=== PATIENT | male | born 1990 | race Caucasian/White ===

== ENCOUNTER 2016-10-06 15:32 | Emergency (ER) | payer MEDICAID ==
[~2016-10-06] VITALS: Ht 175.3 cm; Wt 75.0 kg
[2016-10-06 15:34] VITALS: BP 145/92; PULSE 102; RESP 20; TEMP 97.7; O2SAT 96
[2016-10-06 20:16] VITALS: BP 168/102; PULSE 84; RESP 18; O2SAT 98
--- NOTE | 2016-10-06 20:16 | PD ---
HPI Chief Complaint: Chest Pain Time Seen by Provider: 20:16 Travel History International Travel<30 days: No Contact w/Intl Traveler<30days: No Traveled to known affect area: No History of Present Illness HPI 26-year-old male presents to the emergency department for evaluation of chest pain. Patient states this is been intermittent for the last year. Is mostly right sided. He states over the course of the last few days and especially today he has been experiencing an increase pain in his right side that radiates to his back.It is difficult to get comfortable at times It is sharp and stabbing at times. Patient also noticed that his urine was darker today. He has also had an episode of vomiting and dry heaving. Has no history DVT or PE. Has remote history of alcoholism and drug dependency. Fever or chills. No recent illnesses. Has no other symptoms to report. PFSH Past Medical History Medical History: Denies Significant Hx Diminished Hearing: No Tetanus Vaccination: < 5 Years Past Surgical History Surgical History: No Previous Surgery Social History Alcohol Use: No (quit 8 months ago) Tobacco Use: Yes (1 ppd) Substance Use: No Allergies-Medications (Allergen,Severity, Reaction): Coded Allergies: Penicillin (Verified Allergy, Mild, POSSIBLE ALLERGY, 10/06/16) Reported Meds & Prescriptions Reported Meds & Active Scripts Active No Active Prescriptions or Reported Medications Review of Systems Except as stated in HPI: all other systems reviewed are Neg Physical Exam Narrative GENERAL: Well-nourished male patient, in no acute distress SKIN: Focused skin assessment warm/dry. HEAD: Atraumatic. Normocephalic. EYES: Pupils equal and round. No scleral icterus. No injection or drainage. ENT: No nasal bleeding or discharge. Mucous membranes pink and moist. NECK: Trachea midline. No JVD. CARDIOVASCULAR: Tachycardic rate and rhythm. No murmur appreciated. RESPIRATORY: No accessory muscle use. Diminished but clear to auscultation. Breath sounds equal bilaterally. GASTROINTESTINAL: Abdomen soft, non-tender, nondistended. Hepatic and splenic margins not palpable. MUSCULOSKELETAL: No obvious deformities. No clubbing. No cyanosis. No edema. No CVA tenderness. NEUROLOGICAL: Awake and alert. No obvious cranial nerve deficits. Motor grossly within normal limits. Normal speech. PSYCHIATRIC: Appropriate mood and affect; insight and judgment normal. Data Data Last Documented VS Vital Signs Date Time Temp Pulse Resp B/P Pulse Ox O2 Delivery O2 Flow Rate FiO2 10/06/16 21:22 70 18 127/84 97 Room Air 10/06/16 15:34 97.7 Orders Electrocardiogram (10/06/16 ) Iv Access Insert/Monitor (10/06/16 20:16) Complete Blood Count With Diff (10/06/16 20:16) Basic Metabolic Panel (Bmp) (10/06/16 20:16) Urinalysis - C+S If Indicated (10/06/16 20:16) Sodium Chlor 0.9% 1000 Ml Inj (Ns 1000 M (10/06/16 20:30) Ct Abd/Pel W/O Iv Contrast (10/06/16 ) Ketorolac Inj (Toradol Inj) (10/06/16 22:30) Labs Laboratory Tests Test 10/06/16 10/06/16 20:25 21:50 White Blood Count 5.2 TH/MM3 Red Blood Count 4.95 MIL/MM3 Hemoglobin 16.1 GM/DL Hematocrit 45.0 % Mean Corpuscular Volume 90.9 FL Mean Corpuscular Hemoglobin 32.5 PG Mean Corpuscular Hemoglobin 35.7 % Concent Red Cell Distribution Width 12.5 % Platelet Count 296 TH/MM3 Mean Platelet Volume 7.1 FL Neutrophils (%) (Auto) 64.5 % Lymphocytes (%) (Auto) 22.5 % Monocytes (%) (Auto) 10.8 % Eosinophils (%) (Auto) 1.5 % Basophils (%) (Auto) 0.7 % Neutrophils # (Auto) 3.3 TH/MM3 Lymphocytes # (Auto) 1.2 TH/MM3 Monocytes # (Auto) 0.6 TH/MM3 Eosinophils # (Auto) 0.1 TH/MM3 Basophils # (Auto) 0.0 TH/MM3 CBC Comment DIFF FINAL Differential Comment Sodium Level 139 MEQ/L Potassium Level 3.4 MEQ/L Chloride Level 100 MEQ/L Carbon Dioxide Level 25.0 MEQ/L Anion Gap 14 MEQ/L Blood Urea Nitrogen 8 MG/DL Creatinine 0.92 MG/DL Estimat Glomerular Filtration 99 ML/MIN Rate Random Glucose 85 MG/DL Calcium Level 9.4 MG/DL Urine Color YELLOW Urine Turbidity CLEAR Urine pH 6.5 Urine Specific [place] 1.012 Urine Protein NEG mg/dL Urine Glucose (UA) NEG mg/dL Urine Ketones TRACE mg/dL Urine Occult Blood NEG Urine Nitrite NEG Urine Bilirubin NEG Urine Urobilinogen LESS THAN 2.0 MG/DL Urine Leukocyte Esterase TRACE Urine RBC LESS THAN 1 /hpf Urine WBC 2 /hpf Microscopic Urinalysis Comment CULT NOT INDICATED MDM Medical Decision Making Medical Screen Exam Complete: Yes Emergency Medical Condition: Yes Medical Record Reviewed: Yes Differential Diagnosis Chest wall pain versus muscle strain versus pleuritic pain versus PE versus renal calculi versus biliary colic Narrative Course 26-year-old male presents to emergency department for evaluation. Patient has been having chest pain for the last year but worsening today and now radiates to his posterior trunk. He is tachycardic upon arrival. After IVF NS bolus, HR normalizes. CBC and BMP are without acute concern. Urinalysis is pending. Patient is given IV fluids. CT imaging is ordered and negative for acute obstructive uropathy. Mild fatty liver. discussed with pt. He is discharged at this time. Diagnosis Primary Impression: Chest wall pain Additional Impression: Right flank pain Referrals: Primary Care Physician Patient Instructions: Chest Wall Pain (ED), General Instructions Additional Instructions: Follow up with primary care provider Maintain adequate oral hydration Tylenol or ibuprofen as directed on the package as needed for pain Return immediately with any acute worsening of symptoms Med/Other Pt SpecificInfo: No Change to Meds Scripts No Active Prescriptions or Reported Meds Disposition: 01 DISCHARGE HOME Condition: Stable Lisa Smith Oct 06, 2016 20:16
[2016-10-06] MEDS ORDERED: SODIUM CHLOR 0.9% 1000 ML INJ 1,000 ML IV ONE (20:30)
[2016-10-06 20:44] LABS: AUTOMATED NEUTROPHIL # 3.3 TH/MM3 (1.8-7.7); BASOPHIL % 0.7 % (0.0-2.0); EOSINOPHIL # 0.1 TH/MM3 (0-0.4); EOSINOPHIL % 1.5 % (0.0-4.0); HEMO FLAGS DIFF FINAL; LYMPH % 22.5 % (9.0-44.0); LYMPHOCYTE # 1.2 TH/MM3 (1.0-4.8); MEAN CELL VOLUME 90.9 FL (80.0-100.0); MEAN CORPUSCULAR HEMOGLOBIN 32.5 PG (27.0-34.0); MEAN CORPUSCULAR HGB CONC 35.7 % (32.0-36.0); MONO % 10.8 % (0.0-8.0); NEUT % 64.5 % (16.0-70.0); PLATELET COUNT 296 TH/MM3 (150-450); RED BLOOD COUNT 4.95 MIL/MM3 (4.50-5.90); RED CELL DISTRIBUTION WIDTH 12.5 % (11.6-17.2); WHITE BLOOD COUNT 5.2 TH/MM3 (4.0-11.0)
[2016-10-06 21:10] LABS: POTASSIUM 3.4 MEQ/L (3.5-5.1)
[2016-10-06 21:22] VITALS: BP 127/84; PULSE 70; RESP 18; O2SAT 97
[2016-10-06 22:10] LABS: BLOOD, URINE NEG (NEG); COMMENT (UR) CULT NOT INDICATED; CULTURE IF INDICATED CULT NOT INDICATED; GLUCOSE,URINE NEG (NEG); KETONE, URINE TRACE mg/dL (NEG); NITRITE,URINE NEG (NEG); PH, URINE 6.5 (5.0-8.5); URINE COLOR YELLOW (YELLW/STRAW)
--- NOTE | 2016-10-06 22:20 | RADRPT ---
EXAM DATE/TIME: 10/06/2016 21:59 [facility] COMPARISON: No previous studies available for comparison. INDICATIONS : Right flank abdominal pain for 10 days; evaluate for renal stone. ORAL CONTRAST: No oral contrast ingested. RADIATION DOSE: 4.04 CTDIvol (mGy) MEDICAL HISTORY : None SURGICAL HISTORY : None. ENCOUNTER: Initial ACUITY: 2 weeks PAIN SCALE: 6/10 LOCATION: Right flank Abdomen/pelvis TECHNIQUE: Volumetric scanning of the abdomen and pelvis was performed. Using automated exposure control and ad justment of the mA and/or kV according to patient size, radiation dose was kept as low as reasonably achievable to obtain optimal diagnostic quality images. FINDINGS: LOWER LUNGS: The visualized lower lungs are clear. LIVER: The liver is mildly enlarged and demonstrates fatty infiltration. No focal hepatic mass is noted. The re is no dilation of the biliary tree. No calcified gallstones. SPLEEN: Normal size without lesion. PANCREAS: Within normal limits. KIDNEYS: Normal in size and shape. There is no mass, stone, or hydronephrosis. ADRENAL GLANDS: Within normal limits. VASCULAR: There is no aortic aneurysm. BOWEL/MESENTERY: The stomach, small bowel, and colon demonstrate no acute abnormality. There is no free intraperitone al air or fluid. ABDOMINAL WALL: Within normal limits. RETROPERITONEUM: There is no lymphadenopathy. BLADDER: No wall thickening or mass. REPRODUCTIVE: Within normal limits. INGUINAL: There is no lymphadenopathy or hernia. MUSCULOSKELETAL: Within normal limits for patient age. CONCLUSION: 1. No acute obstructive uropathy. 2. Mild enlarged fatty liver. Barry Byrd MD on October 06, 2016 at 22:16 Board Certified Radiologist. This report was verified electronically.
[2016-10-06] MEDS ORDERED: KETOROLAC TROMETHAMINE 30 MG/ML (IVP) VIAL IV PUSH ONE (22:30)
[2016-10-06 22:52] VITALS: BP 126/78
--- NOTE | 2016-10-08 21:31 | EKG ---
Date Performed: 10/06/2016 Time Performed: 16:38:45 PTAGE: 26 years EKG: Sinus rhythm NONSPECIFIC T-WAVE ABNORMALITY BORDERLINE ECG NO PREVIOUS TRACING DOCTOR: Hafsa Schilling Interpretating Date/Time 10/08/2016 21:27:49
== END 2016-10-06 22:57 | disposition home or self-care (01) ==
LOC: NEPE 15:32
DX: R07.89 Other chest pain (principal); R10.9 Unspecified abdominal pain
CPT/HCPCS: 74176; 80048; 81001; 85025; 93005; 96361; 96374; 99285; J1885; J7030

== ENCOUNTER 2016-11-26 10:51 | Emergency (ER) | payer OTHER, MEDICAID ==
[~2016-11-26] VITALS: Ht 175.3 cm; Wt 65.8 kg
[2016-11-26 10:54] VITALS: BP 121/89; PULSE 84; RESP 16; TEMP 97.9; O2SAT 100
--- NOTE | 2016-11-26 11:14 | PD ---
HPI Chief Complaint: Syncope/Near-Syncope Time Seen by Provider: 11:02 Travel History International Travel<30 days: No Contact w/Intl Traveler<30days: No Traveled to known affect area: No History of Present Illness HPI 26-year-old former alcoholic here with complaint of syncopal episode. Patient states that he was out riding in a boat, driving when he felt suddenly lightheaded, nauseous, dizzy and had a presyncopal episode. No associated chest pain, shortness of breath, palpitations. No recent travel, history of DVT , PE or risk factors. He denies any personal or family history of prolonged QT syndrome, WPW, Brugada. Patient states that he is concerned his blood sugar may be low, noting a female with history of diabetes that he's never been diagnosed with this. Patient feels fine now. He admits that he hadn't had much oral intake today yet, but denies any alcohol use. He states he's been sober for the last 1.5 years. Notes a history of previous syncopal episodes, with similar events. COUNT INCLUDES THE [facility] Past Medical History Diminished Hearing: No Medical other: Yes ("problems with BP") Tetanus Vaccination: < 5 Years Influenza Vaccination: Yes ?: Not Social History Alcohol Use: No (former alcoholic) Tobacco Use: Yes (1 ppd) Substance Use: No Allergies-Medications (Allergen,Severity, Reaction): Coded Allergies: No Known Allergies (Unverified , 11/26/16) Reported Meds & Prescriptions Reported Meds & Active Scripts Active No Active Prescriptions or Reported Medications Review of Systems Except as stated in HPI: all other systems reviewed are Neg Physical Exam Narrative GENERAL: Well-appearing thin male heavily tattooed in no acute distress SKIN: Focused skin assessment warm/dry. HEAD: Normocephalic. EYES: Pupils equal and round. No scleral icterus. No injection or drainage. ENT: No nasal bleeding or discharge. Mucous membranes pink and moist. NECK: Supple CARDIOVASCULAR: Regular rate and rhythm. No murmur appreciated. RESPIRATORY: No accessory muscle use. Clear to auscultation. Breath sounds equal bilaterally. GASTROINTESTINAL: Abdomen soft, non-tender, nondistended. MUSCULOSKELETAL: No obvious deformities. No edema. NEUROLOGICAL: Awake and alert. No obvious cranial nerve deficits. Motor grossly within normal limits. Normal speech. PSYCHIATRIC: Appropriate mood and affect; insight and judgment normal. Data Data Last Documented VS Vital Signs Date Time Temp Pulse Resp B/P Pulse Ox O2 Delivery O2 Flow Rate FiO2 11/26/16 11:20 97 11/26/16 10:54 97.9 84 16 121/89 Orders Electrocardiogram (11/26/16 11:06) Basic Metabolic Panel (Bmp) (11/26/16 11:06) Complete Blood Count With Diff (11/26/16 11:06) Magnesium (Mg) (11/26/16 11:06) Ecg Monitoring (11/26/16 11:06) Iv Access Insert/Monitor (11/26/16 11:06) Oximetry (11/26/16 11:06) Sodium Chloride 0.9% Flush (Ns Flush) (11/26/16 11:15) Alcohol (Ethanol) (11/26/16 11:06) Labs Laboratory Tests Test 11/26/16 11:16 White Blood Count 3.7 TH/MM3 Red Blood Count 4.91 MIL/MM3 Hemoglobin 15.4 GM/DL Hematocrit 45.1 % Mean Corpuscular Volume 91.9 FL Mean Corpuscular Hemoglobin 31.5 PG Mean Corpuscular Hemoglobin 34.2 % Concent Red Cell Distribution Width 11.7 % Platelet Count 317 TH/MM3 Mean Platelet Volume 6.8 FL Neutrophils (%) (Auto) 55.7 % Lymphocytes (%) (Auto) 26.4 % Monocytes (%) (Auto) 11.5 % Eosinophils (%) (Auto) 5.4 % Basophils (%) (Auto) 1.0 % Neutrophils # (Auto) 2.1 TH/MM3 Lymphocytes # (Auto) 1.0 TH/MM3 Monocytes # (Auto) 0.4 TH/MM3 Eosinophils # (Auto) 0.2 TH/MM3 Basophils # (Auto) 0.0 TH/MM3 CBC Comment DIFF FINAL Differential Comment Sodium Level 142 MEQ/L Potassium Level 3.8 MEQ/L Chloride Level 107 MEQ/L Carbon Dioxide Level 29.6 MEQ/L Anion Gap 5 MEQ/L Blood Urea Nitrogen 8 MG/DL Creatinine 0.71 MG/DL Estimat Glomerular Filtration 133 ML/MIN Rate Random Glucose 91 MG/DL Calcium Level 8.1 MG/DL Magnesium Level 2.3 MG/DL Ethyl Alcohol Level 382 MG/DL MDM Medical Decision Making Medical Screen Exam Complete: Yes Emergency Medical Condition: Yes Medical Record Reviewed: Yes Differential Diagnosis 26-year-old former alcoholic male here with presyncopal episode. Differential includes vasovagal, dehydration, electrolyte abnormality, arrhythmia Narrative Course Patient placed on monitor, IV established and blood obtained. Twelve-lead EKG showed sinus rhythm without notable ST or T-wave abnormalities, normal intervals. CBC, BMP, magnesium, blood alcohol level notable for blood alcohol level [id number]. Diagnosis Primary Impression: Alcohol intoxication in active alcoholic Qualified Code: F10.120 - Alcohol intoxication in active alcoholic, uncomplicated Additional Impression: Syncope Qualified Code: R55 - Syncope, unspecified syncope type Referrals: [facility] call for appointment Additional Instructions: Seek treatment for your alcoholism. Med/Other Pt SpecificInfo: No Change to Meds Scripts No Active Prescriptions or Reported Meds Disposition: 01 DISCHARGE HOME Condition: Stable Bessy Flowers MD November 26, 2016 11:14
[2016-11-26] MEDS ORDERED: SODIUM CHLORIDE 0.9% FLUSH 10 ML FLUSH IVF PRN (11:15)
[2016-11-26 11:20] VITALS: O2SAT 97
[2016-11-26 11:23] LABS: AUTOMATED NEUTROPHIL # 2.1 TH/MM3 (1.8-7.7); EOSINOPHIL # 0.2 TH/MM3 (0-0.4); EOSINOPHIL % 5.4 % (0.0-4.0); HEMATOCRIT 45.1 % (39.0-51.0); HEMO FLAGS DIFF FINAL; LYMPH % 26.4 % (9.0-44.0); MEAN CELL VOLUME 91.9 FL (80.0-100.0); MEAN CORPUSCULAR HEMOGLOBIN 31.5 PG (27.0-34.0); MEAN CORPUSCULAR HGB CONC 34.2 % (32.0-36.0); MONO % 11.5 % (0.0-8.0); NEUT % 55.7 % (16.0-70.0); PLATELET COUNT 317 TH/MM3 (150-450); RED BLOOD COUNT 4.91 MIL/MM3 (4.50-5.90); RED CELL DISTRIBUTION WIDTH 11.7 % (11.6-17.2); WHITE BLOOD COUNT 3.7 TH/MM3 (4.0-11.0)
[2016-11-26 11:31] LABS: POTASSIUM 3.8 MEQ/L (3.5-5.1)
[2016-11-26 11:34] LABS: BICARBONATE 29.6 MEQ/L (21.0-32.0); MAGNESIUM 2.3 MG/DL (1.5-2.5)
--- NOTE | 2016-11-27 13:19 | EKG ---
Date Performed: 11/26/2016 Time Performed: 11:10:06 PTAGE: 26 years EKG: Sinus rhythm Normal ECG Compared to prior tracing no significant change PREVIOUS TRACING : 10/06/2016 16.38 DOCTOR: Raz Hardwick Interpretating Date/Time 11/27/2016 13:16:38
== END 2016-11-26 12:15 | disposition home or self-care (01) ==
LOC: PHED 10:51
DX: F10.120 Alcohol abuse with intoxication, uncomplicated (principal); R55 Syncope and collapse; F17.210 Nicotine dependence, cigarettes, uncomplicated; Y90.8 Blood alcohol level of 240 mg/100 ml or more
CPT/HCPCS: 80048; 80307; 83735; 85025; 93005

== ENCOUNTER 2017-07-14 20:22 | Emergency (ER) | payer SELFPAY ==
[~2017-07-14] VITALS: Ht 172.7 cm; Wt 65.0 kg
[2017-07-14 20:25] VITALS: BP 185/99; PULSE 71; RESP 16; TEMP 98.6; O2SAT 98
[2017-07-14] MEDS ORDERED: SODIUM CHLOR 0.9% 1000 ML INJ 1,000 ML IV ONE (20:47)
--- NOTE | 2017-07-14 20:48 | PD ---
HPI Chief Complaint: Seizure Time Seen by Provider: 20:43 Travel History International Travel<30 days: No Contact w/Intl Traveler<30days: No Traveled to known affect area: No History of Present Illness HPI 26-year-old male with history of alcohol dependence presents to emergency department for evaluation following a seizure. Patient stopped drinking 3 days ago. He woke up this morning and was quite tremulous. His father gave him one beer. He did drink this. Patient was walking into the kitchen this afternoon to get food prepared for his baby when he fell to the ground. His mother witnessed him "flopping like a fish." Patient did bite his tongue. He had no incontinence. Patient has no history of seizures. He has not been recently ill. Denies any headache, focal deficit, or weakness. He has no other symptoms to report. [facility] Past Medical History Medical History: Denies Significant Hx Diminished Hearing: No Social History Alcohol Use: No (former alcoholic) Tobacco Use: Yes (1 ppd) Substance Use: No Allergies-Medications (Allergen,Severity, Reaction): Coded Allergies: Penicillins (Verified Allergy, Severe, 07/14/17) Reported Meds & Prescriptions Reported Meds & Active Scripts Active Chlordiazepoxide HCl 25 Mg Capsule 1 Cap PO DIRECTED Take two capsules by mouth TID on day one THEN take two capsule by mouth BID on day two THEN take one capsule by mouth BID on days three and four Review of Systems Except as stated in HPI: all other systems reviewed are Neg Physical Exam Narrative GENERAL: Well-nourished, well-developed ill patient, ambulatory no acute distress. She is moderately tremulous in his extremities. SKIN: Focused skin assessment warm/dry. HEAD: Normocephalic. Atraumatic EYES: No scleral icterus. No injection or drainage. EOMI. PERRL ENT: Mucosa pink and moist. No erythema or exudates. No uvular edema. No uvular , palatal, or tonsillar deviation. Airway patent. Nasal turbinates appear normal without nasal blood, purulent drainage or septal hematoma. The tongue does have bite bajwa on the right lateral aspect of it. NECK: Supple, trachea midline. No JVD or lymphadenopathy. CARDIOVASCULAR: Elevated rate and rhythm without murmurs, gallops, or rubs. RESPIRATORY: Breath sounds equal bilaterally. No accessory muscle use. GASTROINTESTINAL: Abdomen soft, non-tender, nondistended. MUSCULOSKELETAL: No cyanosis, or edema. 5+ strength equal bilateral extremities. BACK: Nontender without obvious deformity. No CVA tenderness. Data Data Last Documented VS Vital Signs Date Time Temp Pulse Resp B/P (MAP) Pulse Ox O2 Delivery O2 Flow Rate FiO2 07/14/17 23:45 07/14/17 20:25 98.6 71 16 98 Room Air Orders Orders Complete Blood Count With Diff (07/14/17 20:47) Alcohol (Ethanol) (07/14/17 20:47) Ct Brain W/O Iv Contrast(Rout) (07/14/17 ) Blood Glucose (07/14/17 20:47) Ecg Monitoring (07/14/17 20:47) Iv Access Insert/Monitor (07/14/17 20:47) Oximetry (07/14/17 20:47) Comprehensive Metabolic Panel (07/14/17 20:47) Sodium Chlor 0.9% 1000 Ml Inj (Ns 1000 M (07/14/17 20:47) Sodium Chloride 0.9% Flush (Ns Flush) (07/14/17 21:00) Lorazepam Inj (Ativan Inj) (07/14/17 21:00) Magnesium (Mg) (07/14/17 20:47) Lorazepam Inj (Ativan Inj) (07/14/17 21:15) Ondansetron Inj (Zofran Inj) (07/14/17 21:15) Ed Discharge Order (07/14/17 23:34) Chlordiazepoxide (Librium) (07/14/17 23:45) Labs Laboratory Tests Test 07/14/17 21:00 White Blood Count 6.0 TH/MM3 Red Blood Count 3.99 MIL/MM3 Hemoglobin 13.2 GM/DL Hematocrit 37.1 % Mean Corpuscular Volume 92.9 FL Mean Corpuscular Hemoglobin 33.1 PG Mean Corpuscular Hemoglobin Concent 35.7 % Red Cell Distribution Width 12.3 % Platelet Count 107 TH/MM3 Mean Platelet Volume 7.3 FL Neutrophils (%) (Auto) 77.1 % Lymphocytes (%) (Auto) 14.4 % Monocytes (%) (Auto) 7.7 % Eosinophils (%) (Auto) 0.3 % Basophils (%) (Auto) 0.5 % Neutrophils # (Auto) 4.6 TH/MM3 Lymphocytes # (Auto) 0.9 TH/MM3 Monocytes # (Auto) 0.5 TH/MM3 Eosinophils # (Auto) 0.0 TH/MM3 Basophils # (Auto) 0.0 TH/MM3 CBC Comment DIFF FINAL Differential Comment Blood Urea Nitrogen 7 MG/DL Creatinine 0.60 MG/DL Random Glucose 85 MG/DL Total Protein 7.4 GM/DL Albumin 3.9 GM/DL Calcium Level 8.8 MG/DL Magnesium Level 1.3 MG/DL Alkaline Phosphatase 73 U/L Aspartate Amino Transf (AST/SGOT) 274 U/L Alanine Aminotransferase (ALT/SGPT) 186 U/L Total Bilirubin 1.8 MG/DL Sodium Level 136 MEQ/L Potassium Level 3.4 MEQ/L Chloride Level 96 MEQ/L Carbon Dioxide Level 29.2 MEQ/L Anion Gap 11 MEQ/L Estimat Glomerular Filtration Rate 162 ML/MIN Ethyl Alcohol Level LESS THAN 3 MG/DL MDM Medical Decision Making Medical Screen Exam Complete: Yes Emergency Medical Condition: Yes Medical Record Reviewed: Yes Differential Diagnosis Alcohol withdrawal versus seizure disorder versus electro-lyte abnormality versus intracranial abnormality Narrative Course 26-year-old male presents to emergency department for evaluation following a seizure. Patient does have history of alcohol dependence and recently stop drinking. His seizure was likely secondary to alcohol withdrawal. CT imaging of the brain confirms no acute intracranial abnormality. Lab work is without acute concern. Liver enzymes are slightly elevated which would be expected in long-term alcohol abuse. Patient was given Ativan to assist with withdrawal symptoms. Following an essentially negative workup, I discussed the patient my attending physician who is also assessed the patient. Patient does have strong family support system. He resides with his parents. We will discharge him home with Librium. I counseled him on use and encouraged follow-up the primary care provider. He agrees to return immediately with any acute worsening of symptoms. Diagnosis Primary Impression: Alcohol withdrawal seizure Qualified Codes: F10.230 - Alcohol dependence with withdrawal, uncomplicated Referrals: [facility] (Out patient) Primary Care Physician Patient Instructions: Alcohol Withdrawal (ED), General Instructions Additional Instructions: Follow-up with a primary care provider Seek outpatient assistance with your alcohol withdrawal Return immediately to the emergency department with any acute worsening symptoms Med/Other Pt SpecificInfo: Prescription(s) given Scripts Chlordiazepoxide HCl (Chlordiazepoxide HCl) 25 Mg Capsule 1 CAP PO DIRECTED, #14 Take two capsules by mouth TID on day one THEN take two capsule by mouth BID on day two THEN take one capsule by mouth BID on days three and four Prov: Lisa Smith 07/14/17 Disposition: 01 DISCHARGE HOME Condition: Stable Lisa Smith Jul 14, 2017 20:48
[2017-07-14] MEDS ORDERED: SODIUM CHLORIDE 0.9% FLUSH 10 ML FLUSH IVF PRN (21:00)
[2017-07-14] MEDS ORDERED: LORazepam 2 MG/ML VIAL IVS ONE (21:00)
[2017-07-14 21:11] LABS: AUTOMATED NEUTROPHIL # 4.6 TH/MM3 (1.8-7.7); BASOPHIL % 0.5 % (0.0-2.0); EOSINOPHIL % 0.3 % (0.0-4.0); HEMATOCRIT 37.1 % (39.0-51.0); HEMOGLOBIN 13.2 GM/DL (13.0-17.0); LYMPH % 14.4 % (9.0-44.0); LYMPHOCYTE # 0.9 TH/MM3 (1.0-4.8); MEAN CELL VOLUME 92.9 FL (80.0-100.0); MEAN CORPUSCULAR HEMOGLOBIN 33.1 PG (27.0-34.0); MEAN CORPUSCULAR HGB CONC 35.7 % (32.0-36.0); MEAN PLATELET VOLUME 7.3 FL (7.0-11.0); MONO % 7.7 % (0.0-8.0); MONOCYTE # 0.5 TH/MM3 (0-0.9); NEUT % 77.1 % (16.0-70.0); PLATELET COUNT 107 TH/MM3 (150-450); RED BLOOD COUNT 3.99 MIL/MM3 (4.50-5.90); RED CELL DISTRIBUTION WIDTH 12.3 % (11.6-17.2)
[2017-07-14] MEDS ORDERED: LORazepam 2 MG/ML VIAL IV PUSH ONE (21:15)
[2017-07-14] MEDS ORDERED: ONDANSETRON HCL 4 MG/2 ML VIAL IV PUSH ONE (21:15)
[2017-07-14 21:33] LABS: ALBUMIN 3.9 GM/DL (3.4-5.0); AST (GOT) 274 U/L (15-37); BICARBONATE 29.2 MEQ/L (21.0-32.0); BLOOD UREA NITROGEN 7 MG/DL (7-18); CALCIUM 8.8 MG/DL (8.5-10.1); CHLORIDE 96 MEQ/L (98-107); GLOMERULAR FILTRATION RATE 162 ML/MIN (>89); GLUCOSE,RANDOM 85 MG/DL (74-106); MAGNESIUM 1.3 MG/DL (1.5-2.5); SODIUM (NA) 136 MEQ/L (136-145)
[2017-07-14 21:35] LABS: ALT (GPT) 186 U/L (12-78)
[2017-07-14 21:39] LABS: ALKALINE PHOSPHATASE 73 U/L (45-117); TOTAL BILIRUBIN ADULT 1.8 MG/DL (0.2-1.0); TOTAL PROTEIN 7.4 GM/DL (6.4-8.2)
--- NOTE | 2017-07-14 22:26 | RADRPT ---
EXAM DATE/TIME: 07/14/2017 22:04 [facility] COMPARISON: No previous studies available for comparison. INDICATIONS : Seizure. RADIATION DOSE: 56.35 CTDIvol (mGy) MEDICAL HISTORY : None SURGICAL HISTORY : None. ENCOUNTER: Initial ACUITY: 1 day PAIN SCALE: 0/10 LOCATION: cranial TECHNIQUE: Multiple contiguous axial images were obtained of the head. Using automated exposure control and adj ustment of the mA and/or kV according to patient size, radiation dose was kept as low as reasonably a chievable to obtain optimal diagnostic quality images. DICOM format image data is available electro nically for review and comparison. FINDINGS: CEREBRUM: The ventricles are normal for age. No evidence of midline shift, mass lesion, hemorrhage or acute in farction. No extra-axial fluid collections are seen. POSTERIOR FOSSA: The cerebellum and brainstem are intact. The 4th ventricle is midline. The cerebellopontine angle i s unremarkable. EXTRACRANIAL: The visualized portion of the orbits is intact. SKULL: The calvaria is intact. No evidence of skull fracture. CONCLUSION: Normal examination. Maximiliano Lorenzana MD on July 14, 2017 at 22:23 Board Certified Radiologist. This report was verified electronically.
[2017-07-14] MEDS ORDERED: CHLO25CA9 PO (23:41)
--- NOTE | 2017-07-14 23:41 | PD ---
Data Data Last Documented VS Vital Signs Date Time Temp Pulse Resp B/P (MAP) Pulse Ox O2 Delivery O2 Flow Rate FiO2 07/14/17 20:25 98.6 71 16 185/99 (127) 98 Room Air Orders Orders Complete Blood Count With Diff (07/14/17 20:47) Alcohol (Ethanol) (07/14/17 20:47) Drug Screen, Random Urine (07/14/17 20:47) Ct Brain W/O Iv Contrast(Rout) (07/14/17 ) Blood Glucose (07/14/17 20:47) Ecg Monitoring (07/14/17 20:47) Iv Access Insert/Monitor (07/14/17 20:47) Oximetry (07/14/17 20:47) Comprehensive Metabolic Panel (07/14/17 20:47) Sodium Chlor 0.9% 1000 Ml Inj (Ns 1000 M (07/14/17 20:47) Sodium Chloride 0.9% Flush (Ns Flush) (07/14/17 21:00) Lorazepam Inj (Ativan Inj) (07/14/17 21:00) Magnesium (Mg) (07/14/17 20:47) Lorazepam Inj (Ativan Inj) (07/14/17 21:15) Diet Regular Basic (07/15/17 Breakfast) Ondansetron Inj (Zofran Inj) (07/14/17 21:15) Ed Discharge Order (07/14/17 23:34) Chlordiazepoxide (Librium) (07/14/17 23:45) Labs Laboratory Tests Test 07/14/17 21:00 White Blood Count 6.0 TH/MM3 Red Blood Count 3.99 MIL/MM3 Hemoglobin 13.2 GM/DL Hematocrit 37.1 % Mean Corpuscular Volume 92.9 FL Mean Corpuscular Hemoglobin 33.1 PG Mean Corpuscular Hemoglobin Concent 35.7 % Red Cell Distribution Width 12.3 % Platelet Count 107 TH/MM3 Mean Platelet Volume 7.3 FL Neutrophils (%) (Auto) 77.1 % Lymphocytes (%) (Auto) 14.4 % Monocytes (%) (Auto) 7.7 % Eosinophils (%) (Auto) 0.3 % Basophils (%) (Auto) 0.5 % Neutrophils # (Auto) 4.6 TH/MM3 Lymphocytes # (Auto) 0.9 TH/MM3 Monocytes # (Auto) 0.5 TH/MM3 Eosinophils # (Auto) 0.0 TH/MM3 Basophils # (Auto) 0.0 TH/MM3 CBC Comment DIFF FINAL Differential Comment Blood Urea Nitrogen 7 MG/DL Creatinine 0.60 MG/DL Random Glucose 85 MG/DL Total Protein 7.4 GM/DL Albumin 3.9 GM/DL Calcium Level 8.8 MG/DL Magnesium Level 1.3 MG/DL Alkaline Phosphatase 73 U/L Aspartate Amino Transf (AST/SGOT) 274 U/L Alanine Aminotransferase (ALT/SGPT) 186 U/L Total Bilirubin 1.8 MG/DL Sodium Level 136 MEQ/L Potassium Level 3.4 MEQ/L Chloride Level 96 MEQ/L Carbon Dioxide Level 29.2 MEQ/L Anion Gap 11 MEQ/L Estimat Glomerular Filtration Rate 162 ML/MIN Ethyl Alcohol Level LESS THAN 3 MG/DL MDM Supervised Visit with RIGOBERTO: Yes Narrative Course The history, exam, and medical decision-making in the associated mid-level provider note were completed with my assistance. I reviewed and agree with the findings presented. I attest that I had a [id number] encounter with the patient on the same day, and personally performed and documented my assessment and findings in the medical record. *My assessment and Findings: 26-year-old man, alcohol withdrawal seizure. Looks well now. Labs are unremarkable. No evidence of trauma. Still has some shaky withdrawal initially. Treated with IV benzodiazepines. Strong family support at home. Vital signs are unremarkable. We'll treat with some Librium, he is in the process of establishing long-term alcoholism treatment with [facility]. Will return for any worsening symptoms. Diagnosis Primary Impression: Alcohol withdrawal seizure Qualified Codes: F10.230 - Alcohol dependence with withdrawal, uncomplicated Patient Instructions: General Instructions Departure Forms: Tests/Procedures Scripts No Active Prescriptions or Reported Meds Disposition: DISCHARGE HOME Condition: Stable Caleb Malave MD Jul 14, 2017 23:41
[2017-07-14] MEDS ORDERED: chlordiazePOXIDE 25 MG CAP PO PRN (23:45)
== END 2017-07-15 00:29 | disposition home or self-care (01) ==
LOC: NEPD 20:22
DX: F10.239 Alcohol dependence with withdrawal, unspecified (principal); R56.9 Unspecified convulsions; F17.200 Nicotine dependence, unspecified, uncomplicated; Z88.0 Allergy status to penicillin; Z79.899 Other long term (current) drug therapy
CPT/HCPCS: 70450; 80053; 80307; 83735; 85025; 96361; 96374; 96375; 99285; J2060; J2405; J7030